=== PATIENT | male | born 1970 | race Caucasian/White ===

== ENCOUNTER 2017-01-11 13:28 | Outpatient (CLI) | payer OTHER | END 2017-01-11 13:29 | disposition home or self-care (01) | LOC: SC 13:28 | PROVIDERS: ATTEND Internal Medicine Pulmonary Disease | DX: R06.83 Snoring (principal); R06.81 Apnea, not elsewhere classified; R51 Headache; G31.84 Mild cognitive impairment of uncertain or unknown etiology; G47.10 Hypersomnia, unspecified; J45.909 Unspecified asthma, uncomplicated; E78.00 Pure hypercholesterolemia, unspecified | CPT/HCPCS: 99203; 99212 ==

== ENCOUNTER 2017-06-16 21:47 | Outpatient (CLI) | payer OTHER | END 2017-06-16 21:48 | disposition home or self-care (01) | LOC: SC 21:47 | PROVIDERS: ATTEND Internal Medicine Pulmonary Disease | DX: G47.30 Sleep apnea, unspecified (principal); R06.83 Snoring | CPT/HCPCS: 95810 ==

== ENCOUNTER 2017-07-26 09:02 | Outpatient (CLI) | payer OTHER | END 2017-07-26 09:03 | disposition home or self-care (01) | LOC: SC 09:02 | PROVIDERS: ATTEND Nurse Practitioner Family | DX: R06.83 Snoring (principal) | CPT/HCPCS: 99212; 99214 ==